=== PATIENT | male | born 1935 | race Caucasian/White ===

== ENCOUNTER 2022-02-14 02:18 | Inpatient (IN) | payer MEDICARE ==
[2022-02-14 03:46] VITALS: BMI 28.7
[2022-02-14] MEDS ORDERED: Ondansetron PF 4 MG/2 ML Vial IVP PRN (07:03)
[2022-02-14] MEDS ORDERED: Acetaminophen 325 MG TAB PO PRN (07:03)
[2022-02-14] MEDS ORDERED: Pharmacy to Dose REMDESIVIR IVPB PRN (07:15)
[2022-02-14] MEDS ORDERED: Guaifenesin DM 100-10/5 ML UDCUP PO PRN (07:15)
[2022-02-14] MEDS ORDERED: Dextrose 50% Abboject 50 ML SYRINGE SLOW IVP PRN (07:16)
[2022-02-14] MEDS ORDERED: Dextrose 5% in Water 1,000 ML IV PRN (07:16)
[2022-02-14] MEDS ORDERED: HumaLOG 300 UNITS/3 ML VIAL SC PRN (07:16)
[2022-02-14] MEDS ORDERED: Albuterol 200 PUFF (6.7GM INHALER) INH PRN (07:23)
[2022-02-14 07:43] LABS: #Lymphocytes 0.9 thou/uL (1.20-3.40); #Monocytes 0.2 thou/uL (0.11-0.59); #Neutrophils 3.6 thou/uL (1.40-6.50); %Basophils 0.2 % (0.0-1.0); %Lymphocytes 19.4 % (21.0-51.0); %Monocytes 4.4 % (0.0-10.0); Hemoglobin 13.5 g/dL (14.0-18.0); Mean Corpuscular HGB CONC 32.6 g/dL (32.0-36.0); Mean Corpuscular Hemoglobin 31.8 pg (27.0-31.0); Mean Corpuscular Volume 97.6 fL (78.0-98.0); Mean Platelet Volume 7.3 fL (7.4-10.4); Platelet Count 173 thou/uL (130-400); RBC Distribution Width 12.9 % (11.5-14.5); Red Blood Cell (RBC) Count 4.23 mill/uL (4.70-6.10); White Blood Cell (WBC) Count 4.7 thou/uL (4.8-10.8)
[2022-02-14 08:02] LABS: Anion Gap 18 mmol/L (10-20); BUN (Urea Nitrogen) 21 mg/dL (8.4-25.7); Calc. Creatinine Clearance 74 mL/min (70-130); Carbon Dioxide 21 mmol/L (23-31); Chloride 103 mmol/L (98-107); Estimated GFR 83; Glucose 150 mg/dL (83-110); Sodium 138 mmol/L (136-145)
[2022-02-14] MEDS ORDERED: REMDESIVIR 200 MG in Sodium Chloride 0.9% 250 ML 210 ML IV SCH (09:00)
[2022-02-14] MEDS: Benzonatate 100 MG CAP PO SCH ×3 (09:19→20:47)
[2022-02-14] MEDS: Dexamethasone 10 MG/ML VIAL SLOW IVP SCH ×2 (09:20→20:48)
[2022-02-14] MEDS: Enoxaparin Sodium 40 MG/0.4 ML SYRINGE SC SCH (09:20)
[2022-02-14] MEDS: Famotidine 20 MG TAB PO SCH ×2 (09:20→20:47)
[2022-02-14 10:22] LABS: Hemoglobin A1c 5.9 % (4.0-6.0)
[2022-02-14] MEDS: HumaLOG 300 UNITS/3 ML VIAL SC PRN ×2 (13:35→18:21)
[2022-02-14] MEDS: Mometasone 200 MCG/Formoterol 5 MCG 120 PUFF INHALER INH SCH (18:26)
[2022-02-14] MEDS: Lisinopril 20 MG TAB PO SCH (20:48)
[2022-02-14] MEDS ORDERED: Loratadine 10 MG TAB PO PRN (22:26)
[2022-02-15] MEDS ORDERED: cefTRIAXone\\ROCEPHIN 2 GM in Sodium Chloride 0.9% 100 ML IVPB SCH (01:00)
[2022-02-15] MEDS ORDERED: Azithromycin 500 MG in Sodium Chloride 0.9% 250 ML 250 ML IVPB SCH (02:00)
[2022-02-15] MEDS: Mometasone 200 MCG/Formoterol 5 MCG 120 PUFF INHALER INH SCH (05:52)
[2022-02-15] MEDS: HumaLOG 300 UNITS/3 ML VIAL SC PRN ×2 (06:38→14:21)
[2022-02-15 06:42] LABS: #Lymphocytes 0.9 thou/uL (1.20-3.40); #Monocytes 0.3 thou/uL (0.11-0.59); #Neutrophils 3.2 thou/uL (1.40-6.50); %Eosinophils 0.3 % (0.0-10.0); %Lymphocytes 19.6 % (21.0-51.0); %Monocytes 7.1 % (0.0-10.0); Hemoglobin 13.4 g/dL (14.0-18.0); Mean Corpuscular HGB CONC 33.2 g/dL (32.0-36.0); Mean Corpuscular Hemoglobin 32.1 pg (27.0-31.0); Mean Corpuscular Volume 96.8 fL (78.0-98.0); Mean Platelet Volume 7.3 fL (7.4-10.4); Platelet Count 175 thou/uL (130-400); RBC Distribution Width 12.8 % (11.5-14.5); Red Blood Cell (RBC) Count 4.17 mill/uL (4.70-6.10); White Blood Cell (WBC) Count 4.4 thou/uL (4.8-10.8)
[2022-02-15 07:04] LABS: Anion Gap 17 mmol/L (10-20); BUN (Urea Nitrogen) 25 mg/dL (8.4-25.7); Calc. Creatinine Clearance 82 mL/min (70-130); Calcium 7.8 mg/dL (7.8-10.44); Carbon Dioxide 23 mmol/L (23-31); Cardiac Risk 4.8 (Less than 4.5); Chloride 103 mmol/L (98-107); Cholesterol 164 mg/dl (< 200 Desired); Estimated GFR 85; Glucose 211 mg/dL (83-110); HDL Cholesterol 34 mg/dL (>60 Neg Risk); LDL Cholesterol, Calculated 116 mg/dL; Potassium 3.5 mmol/L (3.5-5.1); Sodium 139 mmol/L (136-145); Triglycerides 69 mg/dL (Less than 150)
[2022-02-15] MEDS ORDERED: REMDESIVIR 100 MG in Sodium Chloride 0.9% 250 ML 230 ML IV SCH (09:00)
[2022-02-15] MEDS: Lisinopril 20 MG TAB PO SCH (09:08)
[2022-02-15] MEDS: Famotidine 20 MG TAB PO SCH (09:08)
[2022-02-15] MEDS: Benzonatate 100 MG CAP PO SCH ×2 (09:09→14:17)
[2022-02-15] MEDS: Dexamethasone 10 MG/ML VIAL SLOW IVP SCH (09:09)
[2022-02-15] MEDS: Enoxaparin Sodium 40 MG/0.4 ML SYRINGE SC SCH (09:09)
[2022-02-15 12:14] VITALS: BP 179/81; TEMP 97.7
== END 2022-02-15 16:11 | disposition home or self-care (01) | DRG 177 ==
LOC: T4-A 03:22
PROVIDERS: ADMIT Internal Medicine; ATTEND Internal Medicine
PROC: XW033E5 Introduction of Remdesivir Anti-infective into Peripheral Vein, Percutaneous Approach, New Technology Group 5 (ICD-10-PCS; principal; 2022-02-14)
PROC: 3E0333Z Introduction of Anti-inflammatory into Peripheral Vein, Percutaneous Approach (ICD-10-PCS; 2022-02-14)
PROC: 8E0ZXY6 Isolation (ICD-10-PCS; 2022-02-14)
DX: U07.1 COVID-19 (principal); J96.01 Acute respiratory failure with hypoxia; J96.21 Acute and chronic respiratory failure with hypoxia; G92.8 Other toxic encephalopathy; J98.11 Atelectasis; I10 Essential (primary) hypertension; G47.33 Obstructive sleep apnea (adult) (pediatric); L40.9 Psoriasis, unspecified; J98.2 Interstitial emphysema; N18.2 Chronic kidney disease, stage 2 (mild); E11.22 Type 2 diabetes mellitus with diabetic chronic kidney disease; I12.9 Hypertensive chronic kidney disease with stage 1 through stage 4 chronic kidney disease, or unspecified chronic kidney disease; D63.1 Anemia in chronic kidney disease; Z79.899 Other long term (current) drug therapy; Z95.0 Presence of cardiac pacemaker
CPT/HCPCS: 36415; 36416; 80048; 80061; 83036; 83735; 84145; 84443; 85025; 86140; J0248; J0456; J0696; J1100; J1650; J1815; J3490; J7050